=== PATIENT | male | born 1980 | race Caucasian/White ===

== ENCOUNTER 2020-07-01 12:29 | Emergency (ER) | payer BC ==
[2020-07-01 13:04] VITALS: O2SAT 99
--- NOTE | 2020-07-01 13:45 | CT ---
EXAM DESCRIPTION: Head CLINICAL HISTORY: 40 years, Male, blunt head injury, ringing in ear COMPARISON: None TECHNIQUE: Head CT was performed without IV contrast. This exam was performed according to our departmental dose-optimization program, which includes automated exposure control, adjustment of the mA and/or kV according to patient size and/or use of iterative reconstruction technique. FINDINGS: No acute intracranial hemorrhage. No midline shift. The ventricles are not dilated. Zavala-white matter differentiation is intact. No posterior fossa lesion. No mastoid air cell effusion, no fluid in either middle ear. Mild mucoperiosteal thickening in the left frontal sinus. The orbits are unremarkable. No calvarial fracture. IMPRESSION: No acute intracranial abnormality. Electronically signed by: Dustin Chahal MD 07/01/2020 1:43 PM [facility]
--- NOTE | 2020-07-01 13:57 | ED.PDOC ---
History of Present Illness - General Chief Complaint: Trauma Stated Complaint: Fall w/ head injury x 3 weeks ago Time Seen by Provider: 07/01/20 12:35 Source: patient Exam Limitations: no limitations - History of Present Illness Initial Comments: PATIENT REPORTS RINGING IN EARS X SEVERAL WEEKS, HE ADMITS TO FREQUENT USE OF ASPIRIN IN THE PAST, BUT DENIES ANY RECENTLY .HE DOES OPERATE HEAVY MACHINERY. Severity: mild Improving Factors: nothing Worsening Factors: nothing Associated Symptoms: denies symptoms Allergies/Adverse Reactions: Allergies NO KNOWN ALLERGY Allergy (Verified 07/01/20 13:04) Home Medications: Ambulatory Orders NK 07/01/20 Review of Systems - Review of Systems Constitutional: States: no symptoms reported EENTM: States: no symptoms reported Respiratory: States: no symptoms reported Cardiology: States: no symptoms reported Gastrointestinal/Abdominal: States: no symptoms reported Genitourinary: States: no symptoms reported Past Medical History (General) - Patient Medical History Hx Stroke: No Hx of COPD: No Hx Cardiac Disorders: No Hx Hypertension: No Hx Diabetes: No Hx Cancer: No Surgical History: no surgical history - Vaccination History Hx Influenza Vaccination: No Hx Pneumococcal Vaccination: No - Social History Hx Tobacco Use: Yes Hx Alcohol Use: Yes - ~6 pk a day Hx Substance Use: No Hx Substance Use Treatment: No Hx Depression: No - Female History Patient is a Female of Child Bearing Age (10 -59 yrs old): No Patient : No Family Medical History - Family History Mother Family History: No Known Living Status: Still Living Physical Exam - Physical Exam General Appearance: Alert, Well Developed, Well Groomed, Well Hydrated, Well Nourished Ears, Nose, Throat: hearing grossly normal, normal ENT inspection, normal pharynx, abnormal TM (R) Neck: non-tender, full range of motion, supple Respiratory: chest non-tender, lungs clear, normal breath sounds, no respiratory distress Cardiovascular/Chest: normal peripheral pulses, regular rate, rhythm, no edema, no gallop, no JVD, no murmur Progress - EKG/XRAY/CT CT Ordered: Yes Departure - Departure Clinical Impression: Bilateral tinnitus Time of Disposition: 13:56 Disposition: Discharge to Home or Self Care Condition: Good Departure Forms: ED Discharge - Pt. 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 AVOID THE USE OF ASPIRIN. CONSIDERING FOLLOWING UP WITH AND ENT. HAVE YOUR HEARING TESTED.
[2020-07-01 14:22] VITALS: BP 119/80; TEMP 97.9
== END 2020-07-01 14:22 | disposition home or self-care (01) ==
LOC: ER 12:29
DX: H93.13 Tinnitus, bilateral (principal)